=== PATIENT | male | born 1995 | race Caucasian/White ===

== ENCOUNTER 2017-06-27 21:12 | Emergency (ER) | payer BC ==
[~2017-06-27 21:12] MED LIST: Lidocaine 1% PF 5 ML VIAL ONE; PHENYLEPHRINE-NS 100 MCG/ML 10 ML SYRINGE ONE; PROPOFOL 200 MG/20 ML VIAL ONE; Succinylcholine Chloride 20 MG/ML 10 ml SYRINGE FS ONE
[2017-06-27] MEDS ORDERED: Midazolam HCl 2 mg/2 ml Vial ONE (22:07)
[2017-06-27] MEDS ORDERED: Fentanyl 100 MCG/2 ML VIAL ONE (22:08)
--- NOTE | 2017-06-28 00:31 | CON ---
DATE OF CONSULTATION: 06/27/2017 This is GI ER consultation note. REASON FOR CONSULTATION: Esophageal food bolus impaction. HISTORY OF PRESENT ILLNESS: Shreyas Carrion is a 22-year-old man with no significant past medical history. He does chew snuff, and will have 1-2 alcoholic beverages per week, but he does not take any medications. He tells me that for several years, he has had intermittent mild dysphagia to solids. He has never had esophageal food impaction before. He does have some chronic heartburn symptoms from time to time, for which he does not take any medications. About 3 hours ago, he was eating dinner and he swallowed a large piece of steak. He felt as if it immediately hung up in the mid to lower chest , and the sensation has not gone away. He has been doing a lot of retching and spitting up his secretions and has been quite uncomfortable with this. There is no shortness of breath. He presented to the [facility] ER in [place] and he was given Phenergan and Zofran as well as glucagon, but symptoms did not farzad. He was therefore transferred here for endoscopic evaluation. He denies any other symptoms. He has not had any fever, no abdominal pain. REVIEW OF SYSTEMS: Full review of systems including constitutional, head, eyes , ears, nose, throat, GI, , cardiovascular, respiratory, musculoskeletal, and neurologic systems is negative except as noted in HPI. PAST MEDICAL HISTORY: None. ALLERGIES: No known drug allergies. OUTPATIENT MEDICATIONS: None. SOCIAL HISTORY: He does chew snuff. He will have 1-2 alcoholic beverages per week. FAMILY HISTORY: Negative for GI illness or malignancy. PHYSICAL EXAMINATION: VITAL SIGNS: Pulse 116, blood pressure 132/68, 100% oxygen saturation on room air. GENERAL: Healthy appearing 22-year-old man sitting up in the chair, in mild to moderate distress, spitting up his secretions into a bag. MENTAL: He is alert and fully oriented, pleasant, conversational, can give a detailed history. SKIN: No jaundice, no rashes were palpable. EYES: No scleral icterus. Extraocular movements intact. ENT: Mucous membranes moist, no oral lesions. LYMPH: No submandibular or supraclavicular lymphadenopathy. THYROID: Nontender to palpation. HEART: Regular, tachycardia. LUNGS: Clear to auscultation bilaterally. ABDOMEN: Soft, bowel sounds present, nontender to palpation throughout. EXTREMITIES: No peripheral edema. VESSELS: Radial pulses 2+ bilaterally. NEUROLOGICAL: Cranial nerves II-XII intact bilaterally. No focal deficits. ASSESSMENT AND PLAN: 1. Esophageal foreign body, food bolus impaction. 2. Chronic intermittent dysphagia, had a long discussion with the patient and his family about his presentation. This is consistent with esophageal food bolus impaction, unresponsive to medical measures. We will plan for urgent upper endoscopy tonight to relieve the food impaction and also assess for underlying pathology. Suspect he may have an esophageal stricture or perhaps eosinophilic esophagitis. If there are features possibly consistent with eosinophilic esophagitis, we will likely obtain esophageal biopsies on this examination. May also consider discharging him on acid suppression. I anticipate he will be able to be discharged this evening from the PACU following the procedure. FRANKO
--- NOTE | 2017-06-28 01:04 | OP ---
GI ENDOSCOPY NOTE DATE OF PROCEDURE: 06/27/2017 SURGEON: Yuriy Phelps M.D. FINISHING ROOM SUPERVISOR SURGEON: None. PROCEDURE: EGD with foreign body extraction and biopsies. INDICATION: Esophageal foreign body. MEDICATIONS: See anesthesia record. FINDINGS: After discussion of the risks, benefits and alternatives of the procedure, informed consen t was obtained and witnessed. Pre-endoscopic cardiopulmonary examination was satisfactory. Timeout was performed before sedation was achieved. Sedation was achieved with anesthesia assistance in the endoscopy unit. The patient was endotracheally intubated on general anesthesia for airway protection . He was placed in left lateral decubitus position. A Pentax adult upper endoscope was placed into the oropharynx and passed through the cricopharyngeus under direct visualization. The esophageal muc razia had a diffuse appearance consistent with likely eosinophilic esophagitis. This was characterized by edema and white specks as well as a cobblestone appearance throughout the entire length of the es ophagus. In the distal esophagus, there was a large food bolus which appeared to be a large piece of steak. I used multiple modalities to extract the food bolus. Some pieces were successfully snared with a Solano net, I used the 4-pronged grasper to successfully remove more pieces. Eventually, the fo od bolus had been debulked to the point where it slid down into the stomach and examination of the es ophagus was then able to be obtained. In the distal esophagus, there is severe maceration, secondary to the foreign body impaction. There were some longitudinal mucosal rents with some mild oozing of blood which stopped spontaneously within 2-3 minutes. There was no discrete area of stricture visual ized, just diffuse changes compatible with likely eosinophilic esophagitis. The endoscope was advanc ed into the stomach. Forward and retroflexed views of the entire gastric mucosa were obtained. The gastric mucosa appeared normal. The endoscope was passed through the pylorus and into the first and second portions of the duodenum, which also appeared normal. The endoscope was then withdrawn to the mid-esophagus and biopsies were obtained from the mid-esophagus to assess for eosinophilic esophagit is. The endoscope was then completely withdrawn and the patient allowed to recover. The patient graciela erated the procedure well. There were no immediate post-procedure complications. IMPRESSION: 1. Large food bolus impaction in the distal esophagus, completely removed. 2. Severe maceration mucosal trauma and edema in the distal esophagus. 3. Diffuse esophageal changes with cobblestone appearance and white specks, suggestive of possible e osinophilic esophagitis, with mid-esophageal biopsies obtained. 4. Otherwise, normal esophagogastroduodenoscopy. RECOMMENDATIONS: 1. Liquid diet for the next day, then advance slowly as tolerated thereafter. 2. Chew food thoroughly. 3. I have given him a prescription for Protonix 40 mg twice daily. 4. Follow up results of the esophageal biopsies. 5. Follow up in the GI clinic in 2-3 weeks.
== END 2017-06-27 22:04 | disposition admitted as inpatient to this hospital (09) ==
LOC: ERS 21:12
DX: T18.128A Food in esophagus causing other injury, initial encounter (principal); Z71.6 Tobacco abuse counseling; Z87.891 Personal history of nicotine dependence
CPT/HCPCS: 88305; 88312; 88313; 99406; J2001; J2250; J2704; J3010